=== PATIENT | male | born 1965 | race African-American/Black ===

== ENCOUNTER 2023-12-29 04:10 | Emergency (ER) | payer BC, OTHER ==
[2023-12-29 04:17] VITALS: BP 161/83; PULSE 88; RESP 20; TEMP 98.5; BMI 21.7
[2023-12-29] MEDS ORDERED: AMOX TR/POT CLAV 875MG/125MG TABLETS (FP) ONE (05:13)
[2023-12-29] MEDS ORDERED: IBUPROFEN 600 MG TABLET (FP) PO ONE (05:13)
[2023-12-29] MEDS: IBUPROFEN 600 MG TABLET (FP) PO ONE (05:16)
[2023-12-29] MEDS: AMOX TR/POT CLAV 875MG/125MG TABLETS (FP) PO ONE (05:16)
== END 2023-12-29 05:25 | disposition home or self-care (01) ==
LOC: JER 04:10
DX: K13.0 Diseases of lips (principal); K04.7 Periapical abscess without sinus
CPT/HCPCS: 99283-25